=== PATIENT | male | born 1950 | race American Indian/Alaskan Native ===

== ENCOUNTER 2023-07-21 10:44 | Day surgery (SDC) | payer OTHER ==
[2023-07-21] VITALS (10 sets, daily range): BP systolic 143–168; BP diastolic 68–82
[~2023-07-21] VITALS: Ht 172.7 cm; Wt 101.2 kg
[~2023-07-21 10:44] MED LIST: ALBU90OI INH; ATOR40TA PO; BUPROPION XL150 M1 PO; CILO100 PO; HYDROCHLOROTH12.5 MG PO; LOSARTAN POTASS50 M1 PO; MAGNESIUM OXID500 MG PO; NICO21TP TOP; NIZORAL 2% SHAMPOO; SPIRIVA RESPIMAT4 G3 INH; VIT D3 PO
[2023-07-21] MEDS ORDERED: NS 1,000 ML IV ONE ×2 (12:35→12:42)
[2023-07-21] MEDS ORDERED: NS 250 ML IV ONE (12:35)
[2023-07-21] MEDS ORDERED: Heparin Sodium 1000 Units/ML 10ML MDV ONE ×2 (12:35→12:55)
[2023-07-21] MEDS ORDERED: NS 100 ML IV ONE (12:35)
[2023-07-21] MEDS ORDERED: Nitroglycerin 2 MG/20 ML BTL ONE (12:36)
[2023-07-21] MEDS ORDERED: Midazolam HCl 1MG / ML 2ML Vial ONE ×2 (12:42→13:00)
[2023-07-21] MEDS ORDERED: FentaNYL Citrate 50 MCG/ML 2 ML Injection ONE ×2 (12:42→13:01)
--- NOTE | 2023-07-21 14:13 | NUR ---
pt arrives back to recovery room after lab. Pt. drowsy but able to answer questions. pt. needing frequent reminder to keep legs straight and head on pillow. pt. site soft, tender to palpation. no oozing or hematoma at this time. pt c/o difficulty laying flat, assisted to reposition in bed with pillow behind one side of back for support. pt reports this relieved the discomfort. pt. site remains unchanged from previous assessment with repotioining. vss
[2023-07-21] MEDS ORDERED: CLOP75 PO (14:22)
--- NOTE | 2023-07-21 15:15 | NUR ---
PT NEEDING FREQUENT REPOSITIONING FOR COMFORT IN BED. SITE ASSESSED FREQUENTLY AND REMAINS WNL.
--- NOTE | 2023-07-21 16:08 | NUR ---
pt sitting up to 45 degrees. site remains unchanged. snacks provided.
--- NOTE | 2023-07-21 16:42 | NUR ---
PT REMAINS SITTING UP IN BED, VSS, DISCHARGE INSTRUCTIONS REVIEWED IN DETAIL. NO FURTHER QUESTIONS FROM PT. PT. GROIN SITE REMAINS UNCHANGED FROM PREVIOUS ASSESSMENT.
--- NOTE | 2023-07-21 17:22 | NUR ---
PT ABLE TO GET SELF DRESSED, SITE REMAINS UNCHANGED FROM PREVIOUS ASSESSMENT. PT. ALERT AND ORIENTED. VSS UPON DISCHARGE. PT FRIEND TO DRIVE PT HOME. TAKEN VIA WHEEL CHAIR TO EXIT.
== END 2023-07-21 22:45 | disposition home or self-care (01) ==
LOC: MHTC 10:44
DX: E11.51 Type 2 diabetes mellitus with diabetic peripheral angiopathy without gangrene (principal); I70.223 Atherosclerosis of native arteries of extremities with rest pain, bilateral legs; I10 Essential (primary) hypertension; E78.5 Hyperlipidemia, unspecified; J43.9 Emphysema, unspecified; F17.210 Nicotine dependence, cigarettes, uncomplicated; Z86.16 Personal history of COVID-19; Z88.8 Allergy status to other drugs, medicaments and biological substances; Z79.899 Other long term (current) drug therapy
CPT/HCPCS: 37221; 37224; 37228; 75625; 75716; 75774; 76937; 99152; 99153; C1725; C1769; C1876; C1887; C1894; C2623; J1644; J2250; J3010; J7030; J7050; Q9967